=== PATIENT | female | born 1950 | race Caucasian/White ===

== ENCOUNTER → 2025-03-16 09:09 | Outpatient (REF) | payer MEDICARE, OTHER, SELFPAY ==
--- NOTE | 2025-02-11 10:26 | PN.DIAED02 ---
Referral
DSME Class Series Code: [id number]
Referred For: Diabetes Self-Management Training, Medical Nutrition Therapy, Self-Blood Glucose Monitoring, Long-Term Complication Instruction, Accute Complication Instruction, Continuous Glucose Monitoring, Medication management, Care Coordination,
Disease Management
PHI Release Authorization Form Signed: Yes
Patient Problems:
Current Active Problems
Problem Status Onset
Type 2 diabetes mellitus with hyperglycemia Chronic ~01/21/25
Demographic
(1) Type 2 diabetes mellitus with hyperglycemia
Status: Chronic Onset Date: ~01/21/25
Qualifiers:
Diabetes mellitus long term acute care registered nurse insulin use: without long term acute care registered nurse use Qualified Code(s): E11.65 - Type 2 diabetes mellitus with hyperglycemia
Code(s): E11.65 - Type 2 diabetes mellitus with hyperglycemia
Patient's primary language-: Slovenian
Education: Some college
Occupation: Retired
- Social
Primary Support Person: Self & spouse
Primary Care Takers: Self & spouse
Living Arrangements: Self & spouse, Family
- Learning Methods
Preferred Method: Reading, Lecture/audio
Barriers to Learning: Hearing (wears hearing aids)
Glycemic Control
- Blood Glucose Monitoring Assessment
Blood glucose monitoring at home: Yes
Monitor Brands: Accu-Chek
Frequency: 2x per day
Time: fasting, after dinner
- Ketone Monitoring Assessment
Patient monitoring ketone: No
- Hyperglycemia Assessment
Experiences Hyperglycemia: No
- Hypoglycemia Assessment
Patient carries glucose source: No
Patient experiences hypoglycemia: No
- Blood Glucose Monitoring Results
Source: self-report (fasting AM 106, 119. 2 hours PP dinner 113)
- Hemoglobin A1c
Date: 01/21/25
A1C Percentage (%): 6.5
Medical History of Diabetes
Family Diabetes History: Mother
Previous Diabetes Education: No
Previous visit with Dietitian: No
Complications/Comorbidity/Specialist: Gastrointestinal disease (GERD), Heart Disease (XARELTO 20 MG QD), Hypertension (LOSARTAN 100 MG QD, HCTZ 12.5 MG QD), Hyperlipidemia (LEQVIO INJECTION EVERY 6 MONTHS), Metabolic (DM2: METFORMIN 500 MG BID),
Other / symptoms (OSTEOPOROSIS: PROLIA INJECTION EVERY 6 MO)
Measures
- Anthropometrics
Height: 5 ft 1 in
Actual Weight: 174 lb
- Blood Pressure / Pulse
Blood pressure: 117/74
Pulse: 76
- Diabetes Management
Medical Management for Diabetes: Complete physical exam (01/21/2025), Dental exam (01/14/2025), Dilated eye exam (01/27/2025)
Self-Care
- Tobacco Usage
Do you now, or have you ever smoked?: Never smoked
- Alcohol & Drugs Usage
Drinks Alcohol: Yes
Amount/day: Social Occasions (3/YEAR)
- Meals & Dining
Meals & Dining: Patient skips meals: Yes, Food Intolerance / Allergy: Yes (lobster, peppers, onions), Cultural / Latter-Day Dietary Needs: No
Primary Food Still Runner: Self
Primary Mineral Ore Processing Labourer: Self
- Physical Activity
Physical Limitation: Yes (L. torn rotator cuff)
Patient participates in physical Activity: Yes (just started walking)
Activity Types: walking
Duration: 10-20 minutes
Frequency: 1-2x per week
Intensity: Easy
- Self Foot-Care
Foot Problems: None
Performs Self Foot-Exam: No
- Patient-Self Assessment
Diabetes Knowledge: Fair
Feelings About Diabetes: Acceptance
General Health: Fair
Importance of Health: Extremely
Stress Level: Medium
Diabetes Interferes With:: Nothing
Barriers to Diabetes Management: Nothing
Depression Survey Score: 3
- Diabetes Identification
Carries Diabetes Identification: No
Diabetes Identification Information Provided: Yes
Care Plan
- Education Needs
Patient Education Needs: Diabetes disease process, Chronic complications, Acute complications, Medication, Monitoring, Physical activity, Psychosocial Adjustment, Nutritional management, Goal setting & problem solving
Recommended Diabetes Training Program based on assessment: Outpatient Diabetes Education Program
- Plan of Care
Plan of Care:
02/11/2025 DSME INITIAL CONSULT
Met with participant today for registration and initiation of Diabetes Self-management. Pt was recommended by her PCP due to new diagnosis of T2D with an A1c of 6.5%. States she was in the prediabetes range for 6 years and was told to lose weight.
She just started Metformin 500 mg BID on Sunday. Her PCP originally wanted to put her on Mounjaro but patient refused with concerns over losing muscle mass.
She has an Accu-Chek glucometer, has begun testing fasting in AM and 2 hours after dinner. Her glucose has been 106-119 fasting AM and 113 2 hours after dinner. She felt she did not need a demonstration, her has DM and she has already begun
testing. I verbally reviewed correct testing technique and recommended she check once a day in the AM and alternate 2 hours after meals and review with provider.
She has a L. torn rotator cuff, has difficulty lifting arm above head. She is active around the house, and just started walking 20 minutes. We dicussed the importance of exercise to help lower glucose with aerobic activity recommendations of
minimum 30 minutes most days of the week; and resistance/weight training also recommended.
We reviewed the complications of diabetes, states she has intermittent tingling in his feet and is seeing a venous specialist this week. In addition to medications listed, she also takes Vitamin D3 2000 units QD and Preservision QD. She uses the
plate method for portion control, has experienced increased hunger prior to diagnosis, and drinks 4-6 8 oz glasses of water a day. Confirmed she does not have fluid restrictions, encouraged her to drink 8 glasses of water a day to help control her
glucose.
I provided a glucose tracking log, medic alert bracelet flyer and diabetes management booklet. I also provided information regarding the CPT code for class and recommend she contact her insurance company to determine cost and coverage. She
stated that they will just send her a bill, she is OK with that.
She has phone # for office if additional needs arise prior to class.
GOALS:
--- NOTE | 2025-02-11 11:47 | PN.DIAED04 ---
Education Record
- Education Record
Class Attended: Other (DSME initial meeting)
DSME Class Series Code: [id number]
Instructor: Nurse Practitioner (GRETCHEN Woodard)
Pre-Program Knowledge: Demonstrates competency
Pre-Test Score (%): 82
Goals
- Goal 1
Being Active: Exercise 15 minutes-3 times per week (will begin walking 20 minutes, light resistance training with arms)
Goals To Be Evaluated: Exercise 15 mins-3x/week
- Goal 2
Healthy Eating: Make better food choices
Goals To Be Evaluated: Make better food choices
- Goal 3
Monitoring: Follow monitoring schedule
Goals To Be Evaluated: Follow monitoring times
--- NOTE | 2025-03-17 12:34 | PN.DIAED14 ---
This is to notify you that your patient with diabetes, Mary Her ( 1950), has enrolled in our diabetes self-management classes that are being held at [facility].
These classes will include an introduction to diabetes, diet, medication, exercise and prevention of complications. At the end of our class series, you will receive a report of your patient's participation and progress for your records.
Please contact me at the Diabetes [facility], , if there is any particular information regarding your patient that might be helpful to me.
Sincerely,
Prasanth GODINEZ-ADOLFO, [facility] [place]
--- NOTE | 2025-03-17 12:34 | PN.DIAED04 ---
Education Record
- Education Record
Class Attended: Class 1
DSME Class Series Code: [id number]
Instructor: Nurse Practitioner (GRETCHEN Woodard)
Class Curriculum:
Outpatient Diabetes Education Program:
Class 1 (120 minutes)
Describe the diabetes disease process and treatment options
Diabetes management
Develop personal strategies to promote health and behavior change
Integrate psychosocial adjustment for daily living
Monitor blood glucose and other parameters. Interpret and use the results for self-management decision making
Prevent, detect, and treat acute complications
Class Length (mins): 120
Post-Class 1 Test Score (%): 94
== END ==
LOC: DES 09:09
PROVIDERS: ATTENDING PHYSICIAN Family Medicine
DX: E11.69 Type 2 diabetes mellitus with other specified complication (principal)
CPT/HCPCS: 99078

== ENCOUNTER → 2025-03-23 09:28 | Outpatient (REF) | payer MEDICARE, OTHER, SELFPAY ==
--- NOTE | 2025-03-24 10:21 | PN.DIAED04 ---
Education Record
- Education Record
Class Attended: Class 2
DSME Class Series Code: [id number]
Instructor: Registered Dietitian (Perla Harrell, RD, LDN, CDE)
Class Curriculum:
Outpatient Diabetes Education Program:
Class 2 (120 minutes)
Incorporate nutritional management into lifestyle
Understanding nutritional value
Understanding carbohydrate counting
Class Length (mins): 120
== END ==
LOC: DES 09:28
PROVIDERS: ATTENDING PHYSICIAN Family Medicine
DX: E11.69 Type 2 diabetes mellitus with other specified complication (principal)
CPT/HCPCS: 99078

== ENCOUNTER → 2025-03-30 09:52 | Outpatient (REF) | payer MEDICARE, OTHER, SELFPAY | LOC: DES 09:52 | PROVIDERS: ATTENDING PHYSICIAN Family Medicine | DX: E11.69 Type 2 diabetes mellitus with other specified complication (principal) | CPT/HCPCS: 99078 ==

== ENCOUNTER → 2025-04-06 10:15 | Outpatient (REF) | payer MEDICARE, OTHER, SELFPAY | LOC: DES 10:15 | PROVIDERS: ATTENDING PHYSICIAN Family Medicine | DX: E11.69 Type 2 diabetes mellitus with other specified complication (principal) | CPT/HCPCS: 99078 ==

== ENCOUNTER → 2025-04-13 09:09 | Outpatient (REF) | payer MEDICARE, OTHER, SELFPAY ==
--- NOTE | 2025-04-15 09:22 | PN.DIAED04 ---
Education Record
- Education Record
Class Attended: Class 5
DSME Class Series Code: [id number]
Instructor: Registered Nurse (Leanne Winters RN)
Class Curriculum:
Outpatient Diabetes Education Program:
Class 5 (120 minutes)
Prevent, detect, and treat acute complications
Prevent, detect, and treat chronic complications through risk reduction
Develop personal strategies to address psychosocial issues and concerns
Development of diabetes self-management support plan
Letter to physician with DSMS plan attached sent
Class Length (mins): 120
Post-Program Knowledge: Demonstrates competency
Post-Test Score (%): 93
Post-Program Assessment
- Post-Program Assessment
Actual Weight: 167 lb 9.6 oz
Blood pressure: 121/72
Post-Program Depression Survey Score: 3
Reviewing Previous Goals?: Yes
Pre-Program Depression Survey Score: 3
- Goals 1 Evaluation
Goals To Be Evaluated: Exercise 15 mins-3x/week
- Goals 2 Evaluation
Goals To Be Evaluated: Make better food choices
- Goals 3 Evaluation
Goals To Be Evaluated: Follow monitoring times
--- NOTE | 2025-04-15 09:23 | PN.DIAED16 ---
This is to notify you that your patient with diabetes, Mary Her ( 1950), has attended the entire series of Diabetes Self-Management Education Classes.
Class 1 (120 minutes): Diabetes Overview - monitoring, stress/psychosocial adjustment, support, goal setting
Class 2 (120 minutes): Meal Planning - serving sizes, menu plans
Class 3 (120 minutes): Introduction to Carbohydrate Counting, Analyzing Food Labels
Class 4 (120 minutes): Medication, Exercise and Activity
Class 5 (120 minutes): Sick Day Management, Strategies to Reduce Complications, Problem Solving, Resources
The following behavioral goals were identified:
Exercise 15 mins-3x/week
Make better food choices
Follow monitoring times
A follow-up call will be made within three to six months to evaluate attainment of these goals and to check post-program Hemoglobin A1c and overall progress. All class participants are encouraged to contact me if I can be any further assistance in
learning how to manage their diabetes.
Sincerely,
Prasanth GODINEZ-, [facility]
== END ==
LOC: DES 09:09
PROVIDERS: ATTENDING PHYSICIAN Family Medicine
DX: E11.69 Type 2 diabetes mellitus with other specified complication (principal)
CPT/HCPCS: 99078